=== PATIENT | male | born 1955 | race Caucasian/White ===

== ENCOUNTER → 2016-04-24 | Outpatient (CLI) | payer BC ==
[~2016-04-24] MED LIST: ATOR40TA PO; LEVO50TA5 PO; METF1000 PO; PRED20TA PO; SYMB16INH INH; VALS80TA PO; [UNRECOGNIZED DRUG - CODE] INH
--- NOTE | 2016-04-25 03:05 | REP ---
Clinical: Pulmonary nodules. . Comparison: CT dated 02/08/2016 . Technique: PA and lateral. Findings: The mediastinum and cardiac silhouette are normal. The lung simon are clear and without acute consolidation, effusion, or pneumothorax. The skeletal structures are intact and normal. Small subpleural opacities on chest CT are not visualized by current radiographic evaluation. Impression: 1. No acute cardiopulmonary process identified by radiographic evaluation. Signed by Lauro Epps MD 04/25/2016 02:56 A
== END ==
LOC: M SMT 15:22
PROVIDERS: ATTEND Internal Medicine Pulmonary Disease
DX: R91.8 Other nonspecific abnormal finding of lung field (principal)

== ENCOUNTER → 2019-05-14 | Outpatient (REF) | payer BC ==
[~2019-05-14] MED LIST changes: -ATOR40TA PO; +ATOR40TA75 PO; -METF1000 PO; +METF10004 PO
== END ==
LOC: M LAB REF 13:03
PROVIDERS: ATTEND Physician Assistant Medical
DX: J32.4 Chronic pansinusitis (principal)

== ENCOUNTER → 2019-12-24 | Outpatient (REF) | payer BC | LOC: M LAB REF 12:04 | PROVIDERS: ATTEND Physician Assistant Medical | DX: J32.4 Chronic pansinusitis (principal) ==

== ENCOUNTER → 2020-01-18 | Outpatient (CLI) | payer BC ==
--- NOTE | 2020-01-19 08:07 | REP ---
INDICATION: NASAL POLYP. Patient has had prior sinus surgery. COMPARISON: Comparison maxillofacial CT study July 31, 2011. TECHNIQUE: Helical scanning is acquired and 2 mm axial images were reformatted. Coronal multiplanar reformations images are generated. FINDINGS: No intraorbital abnormality is seen. The visualized intracranial structures are unremarkable. There is some spray artifact from dental amalgam. The facial structures are unremarkable. There is complete opacification of the left maxillary sinus with marked mucosal thickening and some higher attenuation material within the maxillary sinus on the left. This is similar to the prior study from 2011. There is moderate mucosal thickening affecting the right maxillary sinus. This is a little less pronounced than on the 2012 study. The patient is apparently status post bilateral uncinectomy however, the nasal antral windows are occluded bilaterally. The ethmoid sinuses are occluded bilaterally and the nasal ethmoid recesses are obscured. Frontal sinuses are completely opacified bilaterally. There is mild mucosal thickening in the right side of the sphenoid sinus and anteriorly there is mucosal thickening in both sphenoid sinuses. There is asymmetric nodular soft tissue medial to the inferior turbinate on the left consistent with nasal polyp. It is difficult to exclude polyps in the region of the nasal ethmoid recesses. The bony nasal septum deviates to the left with mild beaking. Mastoid aeration is normal and symmetric. IMPRESSION: Advanced poly sinusitis changes with complete opacification of the frontal and ethmoid sinuses bilaterally as well as the left maxillary sinus. Patient appears to be status post bilateral uncinectomy. Nasal and antral windows are occluded bilaterally. There is evidence of nasal polyp medial to the inferior turbinate on the left. Some vascular calcification is noted. <Electronically signed by Dawit Riley > 01/19/20 [id number]
== END ==
LOC: M RAD 16:23
PROVIDERS: ATTEND Physician Assistant Medical
DX: J34.89 Other specified disorders of nose and nasal sinuses (principal); J33.9 Nasal polyp, unspecified

== ENCOUNTER → 2020-02-27 | Outpatient (CLI) | payer BC ==
[~2020-02-27] MED LIST changes: +GLIM1TAB4 PO; +HYDR12.55 PO; +LOSA100T50 PO; +TREL1AER IN; +XHAN93MI INH
== END ==
LOC: M LABSMTC 09:19
PROVIDERS: ATTEND Anesthesiology
DX: Z01.812 Encounter for preprocedural laboratory examination (principal); Z20.828 Contact with and (suspected) exposure to other viral communicable diseases

== ENCOUNTER 2020-03-03 06:40 | Day surgery (SDC) | payer BC ==
[~2020-03-03] VITALS: Ht 182.9 cm; Wt 107.5 kg
[~2020-03-03 06:40] MED LIST changes: +LIDOCAINE 1% MDV 20ML VIAL SQ PRN
[2020-03-03] MEDS ORDERED: dexameTHASONE 4 MG/ML 1ML VIAL (J1100 PER 1MG) IV ONE (06:45)
[2020-03-03] MEDS: dexameTHASONE 4 MG/ML 1ML VIAL (J1100 PER 1MG) IV ONE ×2 (07:32→08:23)
[2020-03-03] MEDS ORDERED: ONDANSETRON 4MG/2ML VIAL As Ordered ONE (08:26)
[2020-03-03] MEDS ORDERED: ACETAMINOPHEN 1000MG 100ML IV BTL (OFIRMEV) (J0131 PER 10MG) As Ordered ONE (08:26)
[2020-03-03] MEDS ORDERED: SUGAMMADEX SODIUM 500 MG/5 ML VIAL (BRIDION) As Ordered ONE (08:26)
[2020-03-03] MEDS ORDERED: propofoL 200 MG/20 ML VIAL As Ordered ONE (08:26)
[2020-03-03] MEDS ORDERED: LIDOCAINE 2% JELLY 5ML TUBE As Ordered ONE (08:26)
[2020-03-03] MEDS ORDERED: ROCURONIUM BROMIDE 50 MG/5 ML VIAL As Ordered ONE ×2 (08:26→11:06)
[2020-03-03] MEDS ORDERED: dexameTHASONE 4 MG/ML 1ML VIAL (J1100 PER 1MG) As Ordered ONE (08:26)
[2020-03-03] MEDS ORDERED: MIDAZOLAM INJ 2MG/2ML VIAL (J2250 PER 1MG) As Ordered ONE (08:27)
[2020-03-03] MEDS ORDERED: fentaNYL 100 MCG/2 ML INJECTION (J3010) As Ordered ONE (08:27)
[2020-03-03] MEDS ORDERED: LIDOCAINE 2% 100MG/5ML SDV (FOR ANES.) As Ordered ONE (08:30)
[2020-03-03] MEDS ORDERED: LR 1,000 ML IV ONE (09:00)
[2020-03-03] MEDS ORDERED: EPINEPHrine INJ 1 MG/ML 1ML AMP As Ordered ONE (09:26)
[2020-03-03] MEDS ORDERED: METHYLENE BLUE 0.5% (5MG/ML) 10 ML AMP (PROVAYBLUE) As Ordered ONE (09:26)
[2020-03-03] MEDS ORDERED: LIDOCAINE W/EPINEPHRINE 1% 20ML VIAL As Ordered ONE (09:26)
[2020-03-03] MEDS ORDERED: EPINEPHrine 1MG/ML INJ 30ML MD-VIAL As Ordered ONE ×2 (09:42→11:52)
[2020-03-03] MEDS ORDERED: HYDROmorphone HCL 2 MG/ML 1ML VIAL (J1170) As Ordered ONE (10:54)
[2020-03-03] MEDS ORDERED: LABETALOL 100MG/20ML VIAL As Ordered ONE (12:03)
[2020-03-03] MEDS ORDERED: ONDANSETRON 4MG/2ML VIAL IV PRN (14:15)
[2020-03-03] MEDS ORDERED: HumaLOG INSULIN (NovoLOG) PER UNIT SC ONE (14:15)
[2020-03-03] MEDS ORDERED: oxyCODONE 5MG TAB PO PRN (14:15)
[2020-03-03] MEDS ORDERED: LR 1,000 ML IV SCH ×2 (14:15)
[2020-03-03] MEDS ORDERED: fentaNYL 100 MCG/2 ML INJECTION (J3010) IV PRN (14:15)
[2020-03-03 16:30] VITALS: BP 142/74
--- NOTE | 2020-03-10 10:19 | RO ---
OPERATIVE NOTE DATE OF OPERATION: 03/03/2020 PREOPERATIVE DIAGNOSIS: Pansinusitis and recurrent nasal polyposis. POSTOPERATIVE DIAGNOSIS: Pansinusitis and recurrent nasal polyposis. PROCEDURE PERFORMED: 1. Stereotactic surgery using the [employer]. 2. Bilateral endoscopic maxillary antrostomy with soft tissue removal. 3. Bilateral endoscopic anterior and posterior ethmoidectomy. 4. Bilateral endoscopic frontal sinusotomy using balloon dilation. 5. Bilateral Propel stent implantation. SURGEON: Vishal Milian M.D. ANESTHESIA: General. CLINICAL PREAMBLE: This is a 64-year-old man who presented to the office with history of recurrent nasal polyposis and pansinuitis. He has had two prior sinus surgeries. The last sinus surgery was performed in 2011. CT scan revealed the presence of nasal polyposis bilaterally. Management options including surgery listed above have been discussed with the patient in great details including injury to the orbit, CSF leak, meningitis, diplopia and visual loss. He understood and consented to the procedures listed above. OR NARRATION: The patient was identified in preoperative holding and brought to the operating room in stable condition. In supine position on the operating table, the patient received general anesthesia followed by orotracheal intubation without incident. The patient was prepped and draped in the usual fashion for the procedure. The tip end for the BrainLab system was successfully attached. Good surface landmarks were obtained between the navigation system and the patient's facial features. Both sides of the nasal cavity were then packed using pledgets soaked in 1:100,000 epinephrine. The patient was then prepped and draped in the usual fashion for the procedure. Both eyes were lubricated and protected using the Tegaderm. After waiting a period of time, the pledgets were removed. Both sides of the nasal cavity were inspected using 30-degree rigid nasal endoscope. Diffuse bilateral nasal polyposis were noted. The nasal polyps were infiltrated with 1% lidocaine with 1:100,000 epinephrine for both sides of the nasal cavity. The polyps were then carefully removed from the right nasal cavity. The right middle nasal turbinate was found to be intact. Great care was taken to ensure preservation of the right middle nasal turbinate. The nasal polyp was then carefully tracked up into the right maxillary antral region. The ostium seeker was used to ensure the correct identification of the right maxillary antrum. The polypoid tissue around the maxillary antrum was then successfully debrided. Maxillary antrostomy was made to enlarge the ostium. The right maxillary sinus cavity was then irrigated as well with 180 mL of warm saline solution. Polypoid tissue noted along the remnant of the anterior and posterior ethmoid air cells were carefully identified and debrided. Using the balloon device of a clarinet, the illuminated guidewire was successfully introduced into the right frontal sinus cavity. The balloon was advanced into the frontal recess and the inflated to 12 atmospheric pressure for 5 seconds. The right frontal sinus was then irrigated with 480 mL of warm saline solution as well. The right nasal cavity was then packed using pledgets soaked in 1:100,000 epinephrine. Attention was turned to the left nasal cavity. The left nasal polyps were carefully debrided. The left maxillary antrum was identified. Polypoid tissue was removed around the left maxillary antrum. The left antrostomy was enlarged. The left maxillary sinus was then irrigated with 180 mL of saline solution. Polypoid tissue of the remnant anterior and posterior ethmoid air cells were debrided. The illuminated guidewire was successfully introduced into the left frontal recess into the left frontal sinus. The balloon was then advanced into the frontal recess and then inflated to 12 atmospheric pressure for 5 seconds. The left frontal sinus was also irrigated using 180 mL of warm saline solution. Pledgets soaked in 1:100,000 epinephrine were then used to pack the left-sided nasal cavity as well. At the end of the procedure, sponge and instrument counts were correct. Estimated blood loss was approximately 100 mL. At this time all the pledgets were removed from the nasal cavity and the Propel stent was then successfully implanted into the left and right ostiomeatal complexes to ensure medialization of the left and the right middle nasal turbinates. There was no breach to the lamina papyracea throughout the entire case for both sides of the nasal cavity. General anesthesia was reversed and the patient was extubated and brought to the recovery room in stable condition. In the postoperative area, the patient exhibited no evidence of periorbital ecchymosis. [email or web address]
== END 2020-03-03 16:30 | disposition home or self-care (01) ==
LOC: M SDC 06:40
PROVIDERS: ATTEND Otolaryngology
DX: J32.4 Chronic pansinusitis (principal); J33.9 Nasal polyp, unspecified; E11.9 Type 2 diabetes mellitus without complications; I10 Essential (primary) hypertension; E78.5 Hyperlipidemia, unspecified; E03.9 Hypothyroidism, unspecified; Z87.891 Personal history of nicotine dependence; Z79.84 Long term (current) use of oral hypoglycemic drugs; Z88.8 Allergy status to other drugs, medicaments and biological substances
CPT/HCPCS: 31255; 31267; 31296; 88305; C2625; J0131; J1100; J1170; J2250; J2405; J3010; Q9968

== ENCOUNTER → 2021-11-12 | Outpatient (CLI) | payer BC, MEDICARE ==
[~2021-11-12] MED LIST changes: +DUPI300P SQ; -LIDOCAINE 1% MDV 20ML VIAL SQ PRN; +LOSA100T45 PO; -LOSA100T50 PO
== END ==
LOC: M LABSMTC 10:26
PROVIDERS: ATTEND Anesthesiology
DX: Z01.812 Encounter for preprocedural laboratory examination (principal); Z20.822 Contact with and (suspected) exposure to COVID-19

== ENCOUNTER 2021-11-16 07:40 | Day surgery (SDC) | payer MEDICARE ==
[~2021-11-16] VITALS: Ht 182.9 cm; Wt 105.7 kg
[~2021-11-16 07:40] MED LIST changes: +NS 1,000 ML IV ONE
[2021-11-16] MEDS ORDERED: propofoL 200 MG/20 ML VIAL As Ordered ONE (09:29)
[2021-11-16] MEDS ORDERED: LABETALOL 100MG/20ML VIAL As Ordered ONE (09:29)
[2021-11-16] MEDS ORDERED: LIDOCAINE 2% 100MG/5ML SDV (FOR ANES.) As Ordered ONE (09:29)
[2021-11-16 09:50] VITALS: BP 121/78
== END 2021-11-16 10:00 | disposition home or self-care (01) ==
LOC: M OPP 07:40
PROVIDERS: ATTEND Surgery
DX: Z12.11 Encounter for screening for malignant neoplasm of colon (principal); Z86.010 Personal history of colon polyps; D12.2 Benign neoplasm of ascending colon; D12.3 Benign neoplasm of transverse colon; D12.4 Benign neoplasm of descending colon; D12.5 Benign neoplasm of sigmoid colon; Z88.8 Allergy status to other drugs, medicaments and biological substances; I10 Essential (primary) hypertension; E11.9 Type 2 diabetes mellitus without complications; E03.9 Hypothyroidism, unspecified; Z79.02 Long term (current) use of antithrombotics/antiplatelets; Z79.84 Long term (current) use of oral hypoglycemic drugs; Z79.899 Other long term (current) drug therapy

== ENCOUNTER → 2021-12-21 | Outpatient (REF) | payer MEDICARE ==
[~2021-12-21] MED LIST changes: -NS 1,000 ML IV ONE
== END ==
LOC: M LAB REF 12:50
PROVIDERS: ATTEND Family Medicine
DX: Z01.89 Encounter for other specified special examinations (principal)

== ENCOUNTER → 2022-01-16 | Outpatient (CLI) | payer MEDICARE | LOC: M RAD 07:39 | PROVIDERS: ATTEND Family Medicine | DX: Z13.6 Encounter for screening for cardiovascular disorders (principal); Z87.891 Personal history of nicotine dependence ==

== ENCOUNTER → 2022-07-11 | Outpatient (CLI) | payer MEDICARE | LOC: M PLALAB 13:49 | PROVIDERS: ATTEND Urology | DX: R97.20 Elevated prostate specific antigen [PSA] (principal) ==

== ENCOUNTER → 2023-09-23 | Outpatient (REF) | payer MEDICARE ==
[~2023-09-23] MED LIST changes: -GLIM1TAB4 PO; +GLIM1TAB84 PO; -LOSA100T45 PO; +LOSA100T46 PO
== END ==
LOC: M LABWUC 10:20
PROVIDERS: ATTEND Nurse Practitioner Adult Health
DX: N42.9 Disorder of prostate, unspecified (principal)

== ENCOUNTER → 2024-07-20 | Outpatient (CLI) | payer MEDICARE | LOC: M WUC 10:22 | PROVIDERS: ATTEND Nurse Practitioner Adult Health | DX: N42.9 Disorder of prostate, unspecified (principal) ==

== ENCOUNTER → 2024-07-23 | Outpatient (REF) | payer MEDICARE | LOC: M SFHCDERM 17:54 | PROVIDERS: ATTEND Physician Assistant | DX: D48.9 Neoplasm of uncertain behavior, unspecified (principal) ==

== ENCOUNTER 2025-02-04 08:26 | Day surgery (SDC) | payer MEDICARE ==
[~2025-02-04] VITALS: Ht 182.9 cm; Wt 103.4 kg
[~2025-02-04 08:26] MED LIST changes: +GLYCOPYRROLATE INJ 0.2 MG/ML 2 ML VIAL As Ordered ONE; +LIDOCAINE 2% 100 MG/5 ML SDV (FOR ANES.) As Ordered ONE
[2025-02-04] MEDS ORDERED: GLUCAGON INJ 1 MG VIAL As Ordered ONE (09:17)
[2025-02-04 09:25] VITALS: TEMP 97.9
[2025-02-04 09:41] VITALS: BP 100/69; O2SAT 94
== END 2025-02-04 09:48 | disposition home or self-care (01) ==
LOC: M OPP 08:26
PROVIDERS: ATTEND Surgery
DX: D12.6 Benign neoplasm of colon, unspecified (principal); K57.30 Diverticulosis of large intestine without perforation or abscess without bleeding; Z86.0100 Personal history of colon polyps, unspecified; Z88.8 Allergy status to other drugs, medicaments and biological substances; Z79.84 Long term (current) use of oral hypoglycemic drugs; Z79.899 Other long term (current) drug therapy; Z79.51 Long term (current) use of inhaled steroids
CPT/HCPCS: 45385; 88305; J1596; J1610